=== PATIENT | male | born 1995 | race Hispanic/Latino ===

== ENCOUNTER 2025-07-20 18:23 | Emergency (ER) | payer OTHER, SELFPAY ==
[2025-07-20 18:27] VITALS: BP 125/87
--- NOTE | 2025-07-20 19:25 | ED.GENMED ---
History of Present Illness
General
Chief Complaint: Eye Problems
Source: patient
Exam Limitations: none
Time Seen by Provider: 07/20/25 19:24
History of Present Illness
History of Present Illness:
See MDM
Past History
Past History
ED Past Medical History: None
ED Past Surgical History: None
Social History
Tobacco: Non-smoker
Alcohol: None
Phy Exam
Physical Exam
Physical Exam:
See MDM
Course
Orders/Labs/Results
Orders:
Orders
07/20/25 18:41
CT Head W/o Iv Contrast Urgent
Comment:
Reason For Exam: ptosis
07/20/25 19:23
Visual Acuity- Treatment ONCE
Vital Signs
Initial and Last Documented VS:
Initial Vital Signs
Temp Pulse Resp BP Pulse Ox
97.6 F 104 20 125/87 99
07/20/25 18:27 07/20/25 18:27 07/20/25 18:27 07/20/25 18:27 07/20/25 18:27
Last Documented Vital Signs
Temp Pulse Resp BP Pulse Ox
97.6 F 104 20 125/87 99
07/20/25 18:27 07/20/25 18:27 07/20/25 18:27 07/20/25 18:27 07/20/25 19:26
MDM/Problems Addressed
Differential Diagnosis Includes:
Note:
CHIEF COMPLAINT(S)
Changes in the appearance of the eyes, described as one eyelid appearing droopy and the other eye appearing larger.
HISTORY OF PRESENT ILLNESS
The patient is a 29-year-old male who noticed changes in the appearance of his eyes starting this past Friday. The patient described his right eye as appearing larger, while the left eyelid appears droopy. He reported that he did not initially
notice these changes until they were pointed out by someone else. He does not perceive his eyes as swollen, but reports that his eyes feel different. The patient experiences seeing lights or flickers, which he describes as strange, and occasionally
feels something is in his eyes, although there is nothing present.
He denies any swelling sensation or significant discomfort. 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 He does not recall any recent incidents, such as something entering his eyes, which might have precipitated these symptoms. While he acknowledges some
changes and sensations, he states they do not particularly bother him.
The patient does not routinely take any medications. A computed tomography (CT) scan of the head is planned to ensure no underlying issues. If the CT scan is unremarkable, he is advised to follow up with his primary care physician, who may consider
further evaluation with magnetic resonance imaging (MRI) to exclude more serious conditions. The possibility of eye drop intervention if there were signs of infection was discussed, though it was deemed unnecessary given the absence of infection
markers like crusting or discharge. Lubricating eye drops were recommended for symptomatic relief.
PHYSICAL EXAM
General: Alert, no acute distress.
Skin: Warm, dry.
Head: Normocephalic, atraumatic
Neck: Appears supple, trachea midline.
Eyes, Ears, Nose, Mouth, and Throat: Oral mucosa moist. Very mild left-sided ptosis but muscle strength in the upper eyelid equal bilaterally. Pupils equal and reactive. EOMI
Cardiovascular: No signs of cyanosis
Respiratory: Respirations are non-labored.
Abdomen: Non-distended
Musculoskeletal: No deformities
Neurological: No focal neurological deficit observed.
Psychiatric: Cooperative, appropriate mood and affect.
PLAN
1. Ordered CT scan of the head to assess eye appearance changes and exclude intracranial abnormalities.
2. Recommendation for owyh-yzl-nykmaqf lubricating eye drops to alleviate sensation of something in eyes.
3. Advise follow-up with primary care physician for potential MRI for further evaluation if initial imaging is unremarkable.
DIFFERENTIAL DIAGNOSIS
The Differential Diagnosis includes, in no particular order and is not limited to:
1. Ptosis secondary to nerve palsy
2. Myasthenia gravis
3. Horners syndrome
4. Orbital mass or lesion
5. Intracranial lesion affecting cranial nerves
6. Conjunctivitis
7. Thyroid eye disease
8. Allergic reaction
9. Sinusitis with orbital involvement
10. Blepharitis
SUMMARY OF ENCOUNTER
The patient, a 29-year-old male, presented to the emergency department with changes in the appearance of his eyes, specifically a droopy left eyelid and enlargement of the right eye, along with seeing lights or flickers. He did not experience
significant discomfort or swelling. A CT scan of the head was performed to assess these symptoms and exclude intracranial abnormalities. The CT scan was negative. The patient was reassessed multiple times, remained well-appearing and non-toxic
throughout the stay.
DISPOSITION
The patient was discharged with instructions to follow up with his primary care physician to consider further evaluation, possibly with an MRI, if symptoms persist or worsen.
ASSESSMENT
The patients symptoms of ptosis and eye asymmetry may be related to conditions that need further evaluation.
PLAN
The patient was advised to use wyss-crg-yetlssj lubricating eye drops for symptomatic relief and to follow up with his primary care physician for further evaluation and possible MRI if necessary.
INDEPENDENT REVIEW OF LABS AND INTERPRETATION OF TESTS
My independent interpretation of the CT scan of the head shows negative results, with no intracranial abnormalities.
PATIENT EDUCATION AND COUNSELING
The patient was educated on the use of lubricating eye drops and the importance of follow-up with his primary care physician. Return precautions were discussed, and the patient verbalized understanding.
FOLLOW-UP INSTRUCTIONS
The patient was instructed to follow up with his primary care physician to discuss further evaluation, possibly with an MRI, and to seek immediate medical attention if symptoms worsen or new symptoms develop.
MEDICATION RECONCILIATION
The patient was recommended cpph-qfz-kamcsdu lubricating eye drops for symptomatic relief.
MEDICAL DECISION MAKING
-Complexity of Data Reviewed: Diffuse eye symptomatology possibly connected to conditions such as ptosis secondary to nerve palsy, myasthenia gravis, Horners syndrome, orbital mass or lesion, intracranial lesion affecting cranial nerves,
conjunctivitis, thyroid eye disease, allergic reaction, sinusitis with orbital involvement, or blepharitis.
-Data:
Category 1
My independent interpretation of the CT scan of the head indicates no abnormalities requiring intracranial intervention.
-Risk:
Consideration of Admission/Observation: Escalation of care including admission/observation was considered given the complexity and risk of the patients presenting complaint and exam findings. However, ultimately I feel the patient is safe for
outpatient management with close follow up. Reasoning: Work-up reassuring, vitals are stable, patient agreeable with discharge, reliable for follow-up.
DIAGNOSIS
Left eyelid ptosis (H02.403)
*Pulse Oximetry
SaO2: 99
Oxygen Mode of Delivery: Room air
Patient hypoxic: no
*Critical Care Note
Total Time (30-74mins, 75-104mins- exclusive of procedures): Not Applicable
ED Attending Note
-
Portions of this chart may have been created with voice recognition software.� Occasional wrong word or��sound alike� substitutions may have occurred due to the inherent limitations of voice recognition software.
Discharge Plan
Departure
Patient Disposition: Home (Routine Discharge)
Date of Disposition: 07/20/25
Time of Disposition: 21:32
Patient with high blood pressure during this ER visit?: No
Discharge Problem:
Ptosis
Referrals:
Selam Whitley MD [Family Provider, Family Practice]
Activity Restrictions/Additional Instructions:
Please return for any worsening symptoms.
You may return at any time if you have further concerns.
Please follow up with your doctor at the first available appointment, preferably this week. Please discuss your symptoms whether or not it is worth going further with an MRI.
Thank you for choosing [facility].
Interventions
Interventions:
*Risk Screen - Suicide Last Done: 07/20/25 18:27
*General Assessment Last Done: 07/20/25 19:09
*Neglect/Abuse Screening Last Done: 07/20/25 18:27
*ED- Fall Risk Assessment Last Done: 07/20/25 19:09
*ED COVID-19 Vaccine History Last Done: 07/20/25 19:09
Discharge Date and Time
Print Language: URDU
[2025-07-20 21:35] VITALS: BP 127/81
== END 2025-07-20 21:36 | disposition home or self-care (01) ==
LOC: EMR 18:23
PROVIDERS: EMERGENCY PHYSICIAN Student in an Organized Health Care Education/Training Program; FAMILY PHYSICIAN Student in an Organized Health Care Education/Training Program
DX: H02.403 Unspecified ptosis of bilateral eyelids (principal)
CPT/HCPCS: 99284; 70450